=== PATIENT | male | born 1970 | race Hispanic/Latino ===

== ENCOUNTER 2017-11-19 19:09 | Emergency (ER) | payer BC ==
[2017-11-19] MEDS ORDERED: NA CHLORIDE 0.9% 2,000 ML ONE (19:43)
[2017-11-19] MEDS ORDERED: ONDANSETRON 4 MG/2 ML VIAL ONE (19:43)
[2017-11-19 20:03] LABS: Absolute Lymphocytes (CBC) 0.9 K/uL (0.7-4.9); Absolute Monocytes 0.5 K/uL (0.1-1.3); Absolute Neutrophil 8.3 K/uL (1.8-8.0); Basophils % 0.1 % (0-1.3); Eosinophils % 1.1 % (0-4.4); Hematocrit 52.9 % (39.6-49.0); Lymphocytes % 8.7 % (15.3-44.8); MPV 11.2 fL (7.6-11.3); Monocytes % 5.3 % (3.3-12.3); RBC Red Blood Cell Count 5.69 M/uL (4.33-5.43)
[2017-11-19 20:16] LABS: ALT/SGPT 88 U/L (12-78); AST/SGOT 37 U/L (15-37); Albumin 4.2 g/dL (3.4-5.0); Alkaline Phosphatase 83 U/L (45-117); Amylase Level 56 U/L (25-115); BUN Blood Urea Nitrogen 16 mg/dL (7-18); Bicarbonate 28 mmol/L (21-32); Bilirubin Direct 0.2 mg/dL (0-0.2); Bilirubin Total 1.1 mg/dL (0.2-1.0); Glucose Level 112 mg/dL (74-106); Lipase 117 U/L (73-393); Potassium 4.1 mmol/L (3.5-5.1); Protein, Total 7.8 g/dL (6.4-8.2); Sodium Level 144 mmol/L (136-145)
[2017-11-19 20:38] LABS: Blood Morphology Comment NOT SEEN (NOT SEEN); Platelet Estimate ADEQ; Urine White Blood Cell Casts OK
--- NOTE | 2017-11-19 20:58 | ER ---
Nurse's Notes [facility] Name: Luiz Owens Age: 47 yrs Sex: Male : 1970 Arrival Date: 11/19/2017 Time: 19:11 Bed 5 Private MD: Doug Arroyo Diagnosis: Diarrhea, unspecified Presentation: 11/19 19:21 Presenting complaint: Patient states: diarrhea since 0500 with vomiting starting at ak1 1600. pt stated he vomited 5 times since 1600 today. Transition of care: patient was not received from another setting of care. Onset of symptoms was November 19, 2017. Risk Assessment: Do you want to hurt yourself or someone else? Patient reports no desire to harm self or others. Initial Sepsis Screen: Does the patient meet any 2 criteria? No. Patient's initial sepsis screen is negative. Does the patient have a suspected source of infection? No. Patient's initial sepsis screen is negative. Care prior to arrival: None. 19:21 Method Of Arrival: Ambulatory ak1 19:21 Acuity: OSEAS 3 ak1 Triage Assessment: 19:22 General: Appears in no apparent distress. Behavior is calm, cooperative. Pain: Denies ak1 pain. Historical: - Allergies: 19:22 No Known Allergies; ak1 - Home Meds: 19:22 None [Active]; ak1 - PMHx: 19:22 None; ak1 - PSHx: 19:22 None; ak1 - Immunization history:: Adult Immunizations unknown. - Social history:: Smoking status: Patient/guardian denies using tobacco, Patient/guardian denies using alcohol, street drugs, The patient lives with family. - Ebola Screening: : No symptoms or risks identified at this time. - Family history:: not pertinent. Screenin:22 Abuse screen: Denies threats or abuse. Denies injuries from another. Nutritional ak1 screening: No deficits noted. Tuberculosis screening: No symptoms or risk factors identified. Fall Risk None identified. Assessment: 19:53 General: Appears in no apparent distress. comfortable, Behavior is appropriate for age. lp1 Pain: Denies pain. Neuro: Level of Consciousness is awake, alert, obeys commands. Cardiovascular: Patient's skin is warm and dry. Respiratory: Respiratory effort is even, unlabored. GI: Abdomen is non-distended, Reports diarrhea, nausea, vomiting. : No signs and/or symptoms were reported regarding the genitourinary system. EENT: No signs and/or symptoms were reported regarding the EENT system. Derm: Skin is pink, warm \T\ dry. Musculoskeletal: Circulation, motion, and sensation intact. 21:13 Reassessment: Patient is alert, oriented x 3, equal unlabored respirations, skin lp1 warm/dry/pink. Patient tolerating PO fluids; denies nausea, pain Patient states feeling better. Vital Signs: 19:20 BP 132 / 96; Pulse 113; Resp 18; Temp 98.5(O); Pulse Ox 97% on R/A; Weight 72.57 kg ak1 (R); Height 5 ft. 6 in. (167.64 cm) (R); Pain 0/10; 19:49 BP 125 / 89; Pulse 105; Resp 16; Pulse Ox 99% on R/A; mt 19:54 BP 137 / 99; Pulse 91; Resp 16; Pulse Ox 98% on R/A; lp1 21:12 BP 140 / 88; Pulse 91; Resp 16; Pulse Ox 99% on R/A; Pain 0/10; lp1 19:20 Body Mass Index 25.82 (72.57 kg, 167.64 cm) ak1 ED Course: 19:11 Patient arrived in ED. am2 19:11 Doug Arroyo MD is Private Physician. am2 19:18 Josh Carbajal MD is Attending Physician. ma2 19:20 Arm band placed on Patient placed in an exam room, on a stretcher, on pulse oximetry, ak1 Patient notified of wait time. 19:21 Triage completed. ak1 19:22 Patient has correct armband on for positive identification. Call light in reach. Side ak1 rails up X 1. Adult w/ patient. Pulse ox on. NIBP on. 19:25 Shannon Roach, KELLY is Primary Nurse. lp1 19:52 Inserted saline lock: 20 gauge in right antecubital area, using aseptic technique. lp1 Blood collected. 21:00 Urine collected: clean catch specimen, clear. lp1 21:13 No provider procedures requiring assistance completed. lp1 21:16 IV discontinued, No redness/swelling at site. Pressure dressing applied. lp1 Administered Medications: 19:53 Drug: NS 0.9% 2000 ml Route: IV; Rate: 1 bolus; Site: right antecubital; lp1 21:11 Follow up: IV Status: Completed infusion; IV Intake: 2000ml lp1 19:53 Drug: Zofran 4 mg Route: IVP; Site: right antecubital; lp1 21:11 Follow up: Response: Nausea is decreased lp1 21:12 CANCELLED (Physician Discretion): po challange 1 caps PO continuous lp1 Intake: 21:11 IV: 2000ml; Total: 2000ml. lp1 Outcome: 20:58 Discharge ordered by . luther 21:16 Discharged to home ambulatory, with family. lp1 21:16 Condition: good 21:16 Discharge instructions given to patient, Instructed on discharge instructions, follow up and referral plans. medication usage, Demonstrated understanding of instructions, follow-up care, medications, Prescriptions given X 1. 21:22 Patient left the ED. lp1 Signatures: Shannon Roach RN RN lp1 Ilene Wagner RN RN ak1 Moreno, Amanda am2 Thompson, Moriah mt Alzahri, Mohammad, MD MD de2
--- NOTE | 2017-11-19 20:58 | EDPHYS ---
Physician Documentation [facility] Name: Luiz Owens Age: 47 yrs Sex: Male : 1970 Arrival Date: 11/19/2017 Time: 19:11 Bed 5 Private MD: Doug Arroyo ED Physician Josh Carbajal HPI: 11/19 19:54 This 47 yrs old Male presents to ER via Ambulatory with complaints of ma2 Vomiting/Diarrhea, General Weakness. 19:54 The patient presents to the emergency department with nausea, vomiting, diarrhea. ma2 Onset: The symptoms/episode began/occurred gradually, 1 day(s) ago. Possible causes: unknown. Associated signs and symptoms: Pertinent negatives: abdominal pain, anorexia, dysuria, fever, flatulence, GI bleeding, hematuria. Severity of symptoms: At their worst the symptoms were moderate in the emergency department the symptoms have improved. The patient has experienced similar episodes in the past. Historical: - Allergies: 19:22 No Known Allergies; ak1 - Home Meds: 19:22 None [Active]; ak1 - PMHx: 19:22 None; ak1 - PSHx: 19:22 None; ak1 - Immunization history:: Adult Immunizations unknown. - Social history:: Smoking status: Patient/guardian denies using tobacco, Patient/guardian denies using alcohol, street drugs, The patient lives with family. - Ebola Screening: : No symptoms or risks identified at this time. - Family history:: not pertinent. ROS: 19:54 Abdomen/GI: Positive for nausea, vomiting, and diarrhea, Negative for abdominal pain, ma2 constipation, abdominal cramps, abdominal distension, dysphagia, hematemesis, black/tarry stool, rectal pain, rectal bleeding, flatulence, acute changes. 19:54 All other systems are negative. 20:59 ENT: Negative for injury, pain, and discharge. ma2 Exam: 19:54 Head/Face: Normocephalic, atraumatic. Eyes: Pupils equal round and reactive to light, ma2 extra-ocular motions intact. Lids and lashes normal. Conjunctiva and sclera are non-icteric and not injected. Cornea within normal limits. Periorbital areas with no swelling, redness, or edema. Chest/axilla: Normal chest wall appearance and motion. Nontender with no deformity. No lesions are appreciated. Cardiovascular: Regular rate and rhythm with a normal S1 and S2. No gallops, murmurs, or rubs. Normal PMI, no JVD. No pulse deficits. Respiratory: Lungs have equal breath sounds bilaterally, clear to auscultation and percussion. No rales, rhonchi or wheezes noted. No increased work of breathing, no retractions or nasal flaring. Abdomen/GI: Soft, non-tender, with normal bowel sounds. No distension or tympany. No guarding or rebound. No evidence of tenderness throughout. 19:54 Constitutional: The patient appears dry MM, seems tired Vital Signs: 19:20 BP 132 / 96; Pulse 113; Resp 18; Temp 98.5(O); Pulse Ox 97% on R/A; Weight 72.57 kg ak1 (R); Height 5 ft. 6 in. (167.64 cm) (R); Pain 0/10; 19:49 BP 125 / 89; Pulse 105; Resp 16; Pulse Ox 99% on R/A; mt 19:54 BP 137 / 99; Pulse 91; Resp 16; Pulse Ox 98% on R/A; lp1 21:12 BP 140 / 88; Pulse 91; Resp 16; Pulse Ox 99% on R/A; Pain 0/10; lp1 19:20 Body Mass Index 25.82 (72.57 kg, 167.64 cm) ak1 MDM: 19:18 Patient medically screened. wa2 19:54 Differential diagnosis: gastritis, pancreatitis, viral gastroenteritis, gastroenteritis.wa2 20:57 Data reviewed: vital signs, nurses notes, EMS record, lab test result(s). Counseling: I ma2 had a detailed discussion with the patient and/or guardian regarding: the historical points, exam findings, and any diagnostic results supporting the discharge/admit diagnosis, the presence of at least one elevated blood pressure reading (>120/80) during this emergency department visit, lab results, the need for outpatient follow up. Response to treatment: the patient's symptoms have markedly improved after treatment. 11/19 19:32 Order name: Amylase, Serum; Complete Time: 20:21 [facility] 11/19 19:32 Order name: Basic Metabolic Panel; Complete Time: 20:21 [facility] 11/19 19:32 Order name: CBC with Diff; Complete Time: 20:45 ma2 11/19 19:32 Order name: Creatinine for Radiology; Complete Time: 20:21 [facility] 11/19 19:32 Order name: Hepatic Function; Complete Time: 20:21 [facility] 11/19 19:32 Order name: Lipase; Complete Time: 20:21 [facility] 11/19 19:32 Order name: IV Saline Lock; Complete Time: 19:48 [facility] 11/19 19:32 Order name: Labs collected and sent; Complete Time: 19:48 [facility] 11/19 20:10 Order name: CBC Smear Scan; Complete Time: 20:45 [facility] 11/19 21:15 Order name: Urine Dipstick--Ancillary (enter results) [facility] 11/19 19:32 Order name: Urine Dipstick-Ancillary (obtain specimen); Complete Time: 21:15 [facility] 11/19 21:12 Order name: PO challenge; Complete Time: 21:12 lp1 Administered Medications: 19:53 Drug: NS 0.9% 2000 ml Route: IV; Rate: 1 bolus; Site: right antecubital; lp1 21:11 Follow up: IV Status: Completed infusion; IV Intake: 2000ml lp1 19:53 Drug: Zofran 4 mg Route: IVP; Site: right antecubital; lp1 21:11 Follow up: Response: Nausea is decreased lp1 21:12 CANCELLED (Physician Discretion): po challange 1 caps PO continuous lp1 Disposition: 11/19/17 20:58 Discharged to Home. Impression: Diarrhea, unspecified. - Condition is Stable. - Discharge Instructions: Diarrhea. - Prescriptions for Zofran 4 mg Oral Tablet - take 1 tablet by ORAL route every 12 hours As needed; 20 tablet. - Work release form, Medication Reconciliation Form, Thank You Letter, Antibiotic Education, Prescription Opioid Use form. - Follow up: Private Physician; When: Tomorrow; Reason: Continuance of care. - Problem is new. - Symptoms have improved. Signatures: Dispatcher [employer] EDShannon Miguel RN RN lp1 Ilene Wagner RN RN ak1 Josh Carbajal MD MD ma2 Corrections: (The following items were deleted from the chart) 21:12 20:59 po challange 1 caps PO continuous ordered. ma2 lp1 21:13 19:33 UA MICROSCOPIC+U.LAB.BRZ ordered. EDMS EDMS 21:22 20:58 11/19/2017 20:58 Discharged to Home. Impression: Diarrhea, unspecified. Condition lp1 is Stable. Forms are Medication Reconciliation Form, Thank You Letter, Antibiotic Education, Prescription Opioid Use. Follow up: Private Physician; When: Tomorrow; Reason: Continuance of care. Problem is new. Symptoms have improved. ma2
[2017-11-19 21:32] LABS: Urine Blood 1+ (NEG); Urine Glucose NEGATIVE (NEG); Urine Protein NEGATIVE (NEG); Urine Specific Gravity 1.015 (1.005-1.030); Urine pH 5.5 (5.0-7.0)
== END 2017-11-19 21:22 | disposition home or self-care (01) ==
LOC: ER 19:09
DX: R19.7 Diarrhea, unspecified (principal); R11.10 Vomiting, unspecified
CPT/HCPCS: 36415; 80048; 80076; 81003; 82150; 83690; 85025; 96361; 96374; 99284; J2405; J7030

== ENCOUNTER 2020-11-22 07:09 | Day surgery (SDC) | payer OTHER ==
[2020-11-22] MEDS ORDERED: Ringers Lactate 1,000 ML IV ONE (07:47)
[2020-11-22] MEDS ORDERED: EPINEPHRINE/PF 1 MG/ML AMP ONE (08:42)
[2020-11-22] MEDS ORDERED: propofoL 200 MG/20 ML VIAL IV ONE (08:43)
[2020-11-22] MEDS ORDERED: LIDOCAINE 1% MPF 5 ML VIAL ONE (08:43)
--- NOTE | 2020-11-22 08:51 | ENDO RPT ---
[address], [address] COLONOSCOPY PROCEDURE REPORT EXAM DATE: 11/22/2020 PATIENT NAME: Luiz Moreno MR #: [id number] BIRTHDATE: 1970 ATTENDING: Charlie Owens MD STATUS: outpatient BIN PACKER: Ina Newman RN and Jc Liu CST INDICATIONS: The patient is a 50 yr old Male here for a colonoscopy due to colon cancer screening PROCEDURE PERFORMED: Screening Colonoscopy MEDICATIONS: Per Anesthesia. ESTIMATED BLOOD LOSS: None CONSENT: The patient understands the risks and benefits of the procedure and understands that these risks include, but are not limited to: sedation, allergic reaction, infection, perforation and/or bleeding. Alternative means of evaluation and treatment include, among others: physical exam, x-rays, and/or surgical intervention. The patient elects to proceed with this endoscopic procedure. DESCRIPTION OF PROCEDURE: During intra-op preparation period all mechanical medical equipment was checked for proper function. Hand hygiene and appropriate measures for infection prevention was taken. Procedure, possible complications, alternatives including, but not limited to possibility of bleeding, perforation, tear, infection, sepsis, need for surgery, need for blood transfusion, were explained to the patient. After the risks, benefits and alternatives of the procedure were thoroughly explained, Informed consent was verified, confirmed and timeout was successfully executed by the treatment team. The patient was placed in the left lateral position. A digital rectal exam was performed and revealed external hemorrhoids. After appropriate level of anesthesia, the scope was passed. The EC-[id number] ([id number]) endoscope was introduced through the anus and advanced to the cecum, which was identified by transillumination from the light source, the appendix, and the ileocecal valve. The quality of the prep was good. The instrument was then slowly withdrawn as the colon was fully examined. Scope withdrawal time was . COLON FINDINGS: Internal and external hemorrhoids were found. Retroflexed views revealed no abnormalities. The scope was then completely withdrawn from the patient and the procedure terminated. ADVERSE EVENTS: There were no complications. IMPRESSIONS: Internal and external hemorrhoids RECOMMENDATIONS: hemorrhoidal hygiene RECALL: Return in 5-10 year(s) for Colonoscopy. Charlie Owens MD eSigned: Charlie Owens MD 11/22/2020 8:50 AM cc: Floyd Galvan MD CPT CODES: ICD9 CODES:
[2020-11-22 09:47] VITALS: O2SAT 100
[2020-11-22 09:48] VITALS: BP 128/85; TEMP 97
== END 2020-11-22 09:35 | disposition home or self-care (01) ==
LOC: OR 07:09
PROVIDERS: ATTEND Surgery
PROC: 0DJD8ZZ Inspection of Lower Intestinal Tract, Via Natural or Artificial Opening Endoscopic (ICD-10-PCS; principal; 2020-11-22 08:30)
DX: Z12.11 Encounter for screening for malignant neoplasm of colon (principal); K64.4 Residual hemorrhoidal skin tags; K64.8 Other hemorrhoids
CPT/HCPCS: 45378; J2704; J7120; J0171

== ENCOUNTER 2022-01-11 08:26 | Emergency (ER) | payer OTHER ==
--- OUTSIDE RECORDS SUMMARY | 2022-01-11 08:29 | XMS REPORT | Continuity of Care Document ---
:1970 Author Organization [facility] t Address [address] [place] [address] Care Team Providers Name Role Phone Floyd Galvan Attending Clinician Unavailable Problems This patient has no known problems. Allergies, Adverse Reactions, Alerts This patient has no known allergies or adverse reactions. Medications This patient has no known medications. Procedures This patient has no known procedures. Encounters Start End Encounter Admission Attending Care Care Encounter Source Date/Time Date/Time Type Type Clinicians Facility Department ID 2021-06-01 Outpatient Galvan, STLMLC STLMLC [id number] Common 14:31:53 Floyd [facility] 2021-06-01 Outpatient Galvan, STLMLC STLMLC [id number] Common 13:58:01 Floyd [id number] [facility] 2021-06-01 Outpatient Galvan, STLMLC STLMLC [id number] Common 13:23:34 Floyd [address] [facility] 2021-06-01 Outpatient Galvan, STLMLC STLMLC [id number] Common 13:16:40 Floyd [id number] [facility] 2021-12-09 2021-12-09 ambulatory STLMLC STLMLC [id number] Common 00:00:00 00:00:00 [facility] 2021-05-20 2021-05-20 ambulatory STLMLC STLMLC [id number] Common 00:00:00 00:00:00 [facility] 2021-05-20 2021-05-20 ambulatory STLMLC STLMLC [id number] Common 00:00:00 00:00:00 [facility] 2021-02-11 2021-02-11 Outpatient STLMLC STLMLC [id number] Common 00:00:00 00:00:00 [facility] 2020-12-31 2020-12-31 Outpatient STLMLC STLMLC [id number] Common 00:00:00 00:00:00 [facility] 2020-11-12 2020-11-12 Outpatient STLMLC STLMLC [id number] Common 00:00:00 00:00:00 [facility] 2020-10-22 2020-10-22 Outpatient STLMLC STLMLC [id number] Common 00:00:00 00:00:00 [facility] Results This patient has no known results.
--- NOTE | 2022-01-11 09:03 | RAD REPORT ---
EXAM DESCRIPTION: RAD - Pelvis - 01/11/2022 8:58 am CLINICAL HISTORY: right hip pain COMPARISON: Lumbar Spine 3 Views dated 01/11/2022 FINDINGS/IMPRESSION: No acute fracture. No malalignment. Bilateral acetabular degenerative changes a re noted which are mild.
--- NOTE | 2022-01-11 09:04 | RAD REPORT ---
EXAM DESCRIPTION: RAD - Lumbar Spine 3 Views - 01/11/2022 8:58 am CLINICAL HISTORY: back pain COMPARISON: No comparisons FINDINGS: No acute fracture. Grade 1 anterolisthesis of L5 on S1. Scattered endplate spurring. Mild dextroscoliosis centered at L3-4. IMPRESSION: No acute osseous abnormality involving the lumbar spine.
[2022-01-11] MEDS ORDERED: KETOROLAC 30 MG/ML INJ ONE (09:28)
--- NOTE | 2022-01-11 09:51 | ER ---
Nurse's Notes [facility] Name: Luiz Owens Age: 51 yrs Sex: Male : 1970 Arrival Date: 01/11/2022 Time: 08:27 Bed 9 Private MD: Floyd Galvan Diagnosis: Pain in right hip Presentation: 01/11 09:11 Chief complaint: Patient states: I started having really bad pain in my right hip bm7 starting yesterday. Coronavirus screen: At this time, the client does not indicate any symptoms associated with coronavirus-19. 09:11 Method Of Arrival: Ambulatory bm7 09:12 Care prior to arrival: None. bm7 09:13 Ebola Screen: No symptoms or risks identified at this time. Initial Sepsis Screen: Does bm7 the patient meet any 2 criteria? No. Patient's initial sepsis screen is negative. Does the patient have a suspected source of infection? No. Patient's initial sepsis screen is negative. Risk Assessment: Do you want to hurt yourself or someone else? Patient reports no desire to harm self or others. Onset of symptoms was January 10, 2022. 09:13 Acuity: OSEAS 4 bm7 Triage Assessment: 09:12 General: Appears in no apparent distress. uncomfortable, Behavior is calm, cooperative, bm7 appropriate for age. Pain: Complains of pain in right iliac crest Pain radiates to right leg. EENT: No deficits noted. No signs and/or symptoms were reported regarding the EENT system. Neuro: No deficits noted. Cardiovascular: No deficits noted. Respiratory: No deficits noted. GI: No deficits noted. No signs and/or symptoms were reported involving the gastrointestinal system. : No deficits noted. No signs and/or symptoms were reported regarding the genitourinary system. Derm: No deficits noted. No signs and/or symptoms reported regarding the dermatologic system. Musculoskeletal: Reports pain in right iliac crest. Historical: - Allergies: 09:16 No Known Allergies; iw - Home Meds: 09:16 None [Active]; iw - PMHx: 09:16 None; iw - PSHx: 09:16 None; iw - Immunization history:: Adult Immunizations up to date, Client reports receiving the 2nd dose of the Covid vaccine, Client reports receiving the 1st dose of the Covid vaccine. - Social history:: Smoking status: Patient denies any tobacco usage or history of. Screenin:13 Abuse screen: Denies threats or abuse. Nutritional screening: No deficits noted. bm7 Tuberculosis screening: No symptoms or risk factors identified. Assessment: 09:45 Reassessment: Patient appears in no apparent distress at this time. Patient and/or iw family updated on plan of care and expected duration. Pain level reassessed. Patient is alert, oriented x 3, equal unlabored respirations, skin warm/dry/pink. Patient states feeling better. Patient states symptoms have improved. Vital Signs: 09:11 BP 133 / 79; Pulse 164; Resp 16; Temp 98.3(TE); Pulse Ox 100% on R/A; Weight 81.65 kg bm7 (R); Height 5 ft. 6 in. (167.64 cm); Pain 10/10; 09:42 BP 121 / 75; Pulse 61; Resp 16; Pulse Ox 97% on R/A; iw 09:11 Body Mass Index 29.05 (81.65 kg, 167.64 cm) bm7 ED Course: 08:27 Patient arrived in ED. am2 08:27 Floyd Galvan DO is Private Physician. am2 08:30 [facility]. jmm 08:30 Patient moved to radiology. md1 08:31 Kolton Hearn DO is Attending Physician. jmm 08:48 Patient's name was called from ER lobby. No response. Unable to locate patient. Will bm7 disposition as left without being seen by a provider. 08:50 Patient moved back from radiology. md1 09:00 Pelvis XRAY In Process Unspecified. EDMS 09:00 Lumbar Spine (3 Views) XRAY In Process Unspecified. EDMS 09:12 Arm band placed on right wrist. bm7 09:14 Triage completed. bm7 09:40 Josefa Mcgrath, RN is Primary Nurse. iw 09:45 No provider procedures requiring assistance completed. iw 09:50 Benji Elmore MD is Referral Physician. jmm Administered Medications: 09:20 Drug: Ketorolac 30 mg Route: IM; Site: right deltoid; iw 09:50 Follow up: Response: No adverse reaction iw Outcome: 09:50 Discharge ordered by . jmm 09:56 Discharged to home ambulatory, with family. iw 09:56 Condition: good 09:56 Discharge instructions given to patient, Instructed on discharge instructions, follow up and referral plans. medication usage, Demonstrated understanding of instructions, follow-up care, medications, Prescriptions given X 2. 09:57 Patient left the ED. iw Signatures: Dispatcher [employer] EDMS Samuel Vneegas PA PA jmm Williams, Irene, RN RN Keily Lawler Mikaela md1 Lina Hinton, KELLY RN bm7 Corrections: (The following items were deleted from the chart) 08:57 08:55 Patient taken to lobby, Patient moved back from radiology. debbie lewis 09:13 08:49 Note CALLED PT TO TRIAGE. PT IN XRAY bm7 bm7
--- NOTE | 2022-01-11 09:51 | EDPHYS ---
Physician Documentation [facility] Name: Luiz Owens Age: 51 yrs Sex: Male : 1970 Arrival Date: 01/11/2022 Time: 08:27 Bed 9 Private MD: [facility] ED Physician Kolton Hearn HPI: 01/11 08:34 This 51 yrs old Male presents to ER via Unassigned with complaints of Hip Pain jmm - right side. 08:34 The patient or guardian reports pain. Onset: The symptoms/episode began/occurred jmm acutely, this morning. Modifying factors: The symptoms are alleviated by nothing, the symptoms are aggravated by any movement, weight bearing. Associated signs and symptoms: Loss of consciousness: the patient experienced no loss of consciousness, Pertinent negatives: abdominal pain, diarrhea, dysuria, fever. The patient has not experienced similar symptoms in the past. Historical: - Allergies: 09:16 No Known Allergies; iw - Home Meds: 09:16 None [Active]; iw - PMHx: 09:16 None; iw - PSHx: 09:16 None; iw - Immunization history:: Adult Immunizations up to date, Client reports receiving the 2nd dose of the Covid vaccine, Client reports receiving the 1st dose of the Covid vaccine. - Social history:: Smoking status: Patient denies any tobacco usage or history of. ROS: 08:34 Constitutional: Negative for fever, chills, and weight loss, Cardiovascular: Negative jmm for chest pain, palpitations, and edema, Respiratory: Negative for shortness of breath, cough, wheezing, and pleuritic chest pain, Abdomen/GI: Negative for abdominal pain, nausea, vomiting, diarrhea, and constipation. 08:34 Back: Positive for pain with movement. 08:34 MS/extremity: Positive for pain. 08:34 All other systems are negative. Exam: 08:34 Constitutional: This is a well developed, well nourished patient who is awake, alert, jmm and in no acute distress. Head/Face: atraumatic. Eyes: EOMI, no conjunctival erythema appreciated ENT: Moist Mucus Membranes Neck: Trachea midline, Supple Chest/axilla: Normal chest wall appearance and motion. Cardiovascular: Regular rate and rhythm. No edema appreciated Respiratory: Normal respirations, no respiratory distress appreciated Abdomen/GI: Non distended Back: Normal ROM Skin: General appearance color normal 08:34 Back: pain, that is moderate, of the right low back. 08:34 Musculoskeletal/extremity: right lateral hip pain on palpation, painful rom, compartments are soft, nvi. 08:34 Neuro: Orientation: is normal, Mentation: is normal, Memory: is normal. 08:34 Psych: Behavior/mood is pleasant, cooperative. Vital Signs: 09:11 BP 133 / 79; Pulse 164; Resp 16; Temp 98.3(TE); Pulse Ox 100% on R/A; Weight 81.65 kg bm7 (R); Height 5 ft. 6 in. (167.64 cm); Pain 10/10; 09:42 BP 121 / 75; Pulse 61; Resp 16; Pulse Ox 97% on R/A; iw 09:11 Body Mass Index 29.05 (81.65 kg, 167.64 cm) bm7 MDM: 08:33 Patient medically screened. [facility] 09:48 Data reviewed: vital signs, nurses notes. Counseling: I had a detailed discussion with [facility] the patient and/or guardian regarding: the historical points, exam findings, and any diagnostic results supporting the discharge/admit diagnosis, radiology results, the need for outpatient follow up, to return to the emergency department if symptoms worsen or persist or if there are any questions or concerns that arise at home. ED course: Xray did not reveal an acute process. Most likely OA. Advised to follow up with ortho and otherwise given strict return precautions. patient understood and agrees with the plan of care. . 01/11 08:34 Order name: Pelvis XRAY; Complete Time: 09:04 [facility] 01/11 08:34 Order name: Lumbar Spine (3 Views) XRAY; Complete Time: 09:05 [facility] 01/11 09:30 Order name: Vital Signs; Complete Time: 09:43 [facility] Administered Medications: 09:20 Drug: Ketorolac 30 mg Route: IM; Site: right deltoid; iw 09:50 Follow up: Response: No adverse reaction iw Disposition: 22:42 Co-signature as Attending Physician, Kolton Hearn DO I agree with the assessment and ms3 plan of care. Disposition Summary: 01/11/22 09:50 Discharge Ordered Location: Home [facility] Condition: Stable [facility] Diagnosis - Pain in right hip [facility] Followup: - With: Benji Elmore MD - When: 2 - 3 days - Reason: Recheck today's complaints, Continuance of care, Re-evaluation by your physician Discharge Instructions: - Discharge Summary Sheet lucero - Hip Pain [facility] Forms: - Medication Reconciliation Form [facility] - Thank You Letter dave - Antibiotic Education dave - Prescription Opioid Use lucero - Work release form Prescriptions: - Diclofenac Sodium 75 mg Oral Tablet Sustained Release - take 1 tablet by ORAL route 2 times per day; 30 tablet; Refills: 0, Product [facility] Selection Permitted - orphenadrine citrate 100 mg Oral Tablet Sustained Release - take 1 tablet by ORAL route 2 times per day As needed; 20 tablet; Refills: 0, [facility] Product Selection Permitted Signatures: Dispatcher [employer] Samuel Marcum PA PA jmm Williams, Irene, RN RN iw Kolton Hearn DO DO ms3
[2022-01-11 10:21] VITALS: TEMP 98.3
[2022-01-11 10:23] VITALS: BP 121/75; O2SAT 97
== END 2022-01-11 09:57 | disposition home or self-care (01) ==
LOC: ER 08:26
DX: M25.551 Pain in right hip (principal)
CPT/HCPCS: 72100; 72170; 96372; 99283